=== PATIENT | female | born 2005 | race Hispanic/Latino ===

== ENCOUNTER 2024-01-06 11:33 | Emergency (ER) | payer BC, SELFPAY ==
[2024-01-06 11:34] VITALS: BP 142/83
[2024-01-06] MEDS: TORADOL 15 MG IV (13:19)
--- NOTE | 2024-01-06 13:22 | ED.GENMED ---
History of Present Illness
<Delphine Diamond PA-C - Last Filed: 01/06/24 18:25>
General
Chief Complaint: Female Physician Office Rep/Gu symptoms
Source: patient
Exam Limitations: none
Time Seen by Provider: 01/06/24 12:19
Nursing documentation reviewed up to this point in time: agreed with
History of Present Illness
History of Present Illness:
18-year-old female presenting to the emergency department for evaluation of pelvic discomfort. Patient states that she woke up this morning and had pelvic cramping. Cramping was much more severe than she is ever had in the past which prompted her
to come to the emergency department for evaluation. Patient states yesterday she felt at her baseline without any pain. Patient denies any fever or chills. No nausea or vomiting. Patient denies any true urinary symptoms. Patient denies any
vaginal spotting or abnormal vaginal discharge. Patient is not currently sexually active. No history of STIs/STDs. No history of abnormal Pap smears. Patient does have a copper IUD. Patient is not currently sexually active.
Review of Systems
<Delphine Diamond PA-C - Last Filed: 01/06/24 18:25>
Review of Systems
Allergies reviewed?: Yes
All Other Systems: ROS reviewed and negative except as documented in HPI and ROS
Phy Exam
<Delphine Diamond PA-C - Last Filed: 01/06/24 18:25>
Physical Exam
Physical Exam:
Vitals: Mildly hypertensive, otherwise vital signs stable
General: Patient is well appearing, no acute distress. Nontoxic appearing
Skin: Warm and dry, no rashes or lesions
Head: Normocephalic, atraumatic
Eyes: Sclera nonicteric. EOMs intact. No nystagmus.
Throat: Protecting airway
Neck: Normal ROM, no cervical spine tenderness, no meningismus
Cardiac: Regular rate and rhythm, no murmurs.
Pulm: Normal respiratory effort, no wheezes, rales, rhonchi heard on exam.
Abdomen: Abdomen soft. Mild suprapubic tenderness and right pelvic tenderness without rebound tenderness or guarding. No pain at McBurney's point. No CVA tenderness
Extremities: No evidence of cyanosis or edema. Great distal pulses
Neuro: Grossly intact.
Psychiatric: Normal affect.
Course
<Delphine Diamond PA-C - Last Filed: 01/06/24 18:25>
Orders/Labs/Results
Orders:
Orders
01/06/24
US Pelvis W Transvag Combined Urgent
Reason For Exam: PELVIC PAIN
01/06/24 12:35
Ketorolac [Toradol] 15 mg IV NOW STA
01/06/24 12:36
Test Result ONCE
01/06/24 13:01
Complete Blood Count/With Diff Urgent
Comprehensive Metabolic Panel Urgent
HCG, Serum Qualitative Screen Urgent
Urinalysis Reflex To Culture Urgent
Date Specimen was Collected: 01/06/24
Time Specimen was Collected: 13:00
Urine Microscopic Reflex Cult Urgent
Urine Culture Urgent
CLAUDIA Source: U
Specimen Description:
Date Specimen was Collected: 01/06/24
Time Specimen was Collected: 13:00
01/06/24 13:35
0.9% Sodium Chloride 1000 ml [Nss] 1,000 ml IV BOLUS
Kidney US [US Renal Only W/O Bladder] Urgent
Comment:
Reason For Exam: lower pelvic pain
Pelvis (Non Obstetric) US [US Pelvis Only (non-obstetric)] Urgent
Comment:
Reason For Exam: pelvic pain, r/o torsion
Abnormal Lab Results
01/06/24
13:01
RBC 3.97 L 10^6/uL
(4.20-5.40)
Hgb 11.7 L g/dL
(12.0-16.0)
Hct 35.9 L %
(37.0-47.0)
MCHC 32.6 L g/dL
(33.0-37.0)
Carbon Dioxide 21 L mmol/L
(22-30)
Leukocyte Esterase Rfl Trace A
(Negative)
Urine RBC 3-6 A /HPF
(0-2)
Urine Bacteria (Reflex) Moderate A
(Negative)
01/06/24 13:01
01/06/24 13:01
Vital Signs
Initial and Last Documented VS:
Initial Vital Signs
Temp Pulse Resp BP Pulse Ox
98.2 F 78 16 142/83 93
01/06/24 11:34 01/06/24 11:34 01/06/24 11:34 01/06/24 11:34 01/06/24 11:34
Last Documented Vital Signs
Temp Pulse Resp BP Pulse Ox
98.2 F 59 18 125/81 96
01/06/24 11:34 01/06/24 17:39 01/06/24 17:39 01/06/24 17:39 01/06/24 16:56
Siminlt;Mague Serrano, DO - Last Filed: 01/06/24 17:17>
Orders/Labs/Results
Orders:
Orders
01/06/24
US Pelvis W Transvag Combined Urgent
Reason For Exam: PELVIC PAIN
01/06/24 12:35
Ketorolac [Toradol] 15 mg IV NOW STA
01/06/24 12:36
Test Result ONCE
01/06/24 13:01
Complete Blood Count/With Diff Urgent
Comprehensive Metabolic Panel Urgent
HCG, Serum Qualitative Screen Urgent
Urinalysis Reflex To Culture Urgent
Date Specimen was Collected: 01/06/24
Time Specimen was Collected: 13:00
Urine Microscopic Reflex Cult Urgent
Urine Culture Urgent
CLAUDIA Source: U
Specimen Description:
Date Specimen was Collected: 01/06/24
Time Specimen was Collected: 13:00
01/06/24 13:35
0.9% Sodium Chloride 1000 ml [Nss] 1,000 ml IV BOLUS
Kidney US [US Renal Only W/O Bladder] Urgent
Comment:
Reason For Exam: lower pelvic pain
Pelvis (Non Obstetric) US [US Pelvis Only (non-obstetric)] Urgent
Comment:
Reason For Exam: pelvic pain, r/o torsion
Abnormal Lab Results
01/06/24
13:01
RBC 3.97 L 10^6/uL
(4.20-5.40)
Hgb 11.7 L g/dL
(12.0-16.0)
Hct 35.9 L %
(37.0-47.0)
MCHC 32.6 L g/dL
(33.0-37.0)
Carbon Dioxide 21 L mmol/L
(22-30)
Leukocyte Esterase Rfl Trace A
(Negative)
Urine RBC 3-6 A /HPF
(0-2)
Urine Bacteria (Reflex) Moderate A
(Negative)
01/06/24 13:01
01/06/24 13:01
Vital Signs
Initial and Last Documented VS:
Initial Vital Signs
Temp Pulse Resp BP Pulse Ox
98.2 F 78 16 142/83 93
01/06/24 11:34 01/06/24 11:34 01/06/24 11:34 01/06/24 11:34 01/06/24 11:34
Last Documented Vital Signs
Temp Pulse Resp BP Pulse Ox
98.2 F 59 18 125/81 96
01/06/24 11:34 01/06/24 17:39 01/06/24 17:39 01/06/24 17:39 01/06/24 16:56
<Delphine Diamond PA-C - Last Filed: 01/06/24 18:25>
MDM/Problems Addressed
Differential Diagnosis Includes:
Not limited to: Mittelschmerz, ovarian cyst, ovarian torsion, UTI, ectopic , IUD migration
MDM/Problems Addressed:
18-year-old female presenting with right pelvic cramping since this morning. No associated fever, chills, abdominal pain, nausea/vomiting. No urinary symptoms. Not currently sexually active. No history of STI/STDs. No abnormal vaginal
discharge. Vital stable. Exam as above. Patient is very well-appearing, no distress. She is calm and nontoxic-appearing. Abdomen is soft with very mild suprapubic and right pelvic tenderness without rebound tenderness or guarding. No palpable
masses. No CVA tenderness. Heart regular rate rhythm. Lungs clear bilaterally. Patient is perfusing well. Patient without any concerns for STI/STDs. Will check labs, , urine. Will get pelvic ultrasound. Will give fluids, IV Toradol.
Will closely monitor and reassess.
Chronic conditions affecting care:
N/A
Acute Exacerbation and/or Progression of Chronic Illness:
N/A
<Delphine Diamond PA-C - Last Filed: 01/06/24 18:25>
*Radiology
Radiology exam reviewed: radiology read reviewed
*Pulse Oximetry
Patient hypoxic: no
*EKG
Interpreted by ED Provider?: NA
*At Risk Specialist Interpretation
Rate: At Risk Specialist- N/A
*Critical Care Note
Total Time (30-74mins, 75-104mins- exclusive of procedures): Not Applicable
<Delphine Diamond PA-C - Last Filed: 01/06/24 18:25>
Update Note
Update Note:
Update:. Labs reviewed. No clinically significant abnormalities. test negative. Urine does show bacteria although given many squamous cells seen�suspect likely contamination. Given no current urinary symptoms and high suspicion for
contamination�will avoid antibiotics at this time. Urine culture will be sent. Few RBCs also noted. Will add on renal ultrasound to pelvic ultrasound to ensure no obstructive process versus hydronephrosis.
Update: Into reassess patient. Patient has essentially complete improvement in pain following dose of Toradol. Ultrasound pending.
Update: Ultrasound reports reviewed. Renal ultrasound without any abnormalities. Pelvic ultrasound does show a complex cystic lesion near right ovary likely representing a hemorrhagic cyst. This measures approximately 3 x 3 x 2. Normal arterial
and venous blood flow documented to both ovaries. Suspect this is likely contributing to patient's symptoms. Patient has remained hemodynamically stable, with no pain after Toradol. Given that patient remains in no pain and small size of cystic
lesion�no indication for admission/further management at this time. Patient stable for discharge with close [facility] follow-up. Recommend repeat pelvic ultrasound in 6 to 8 weeks. Return precautions discussed at length. Patient seen with attending
physician.
ED Attending Note
<Delphine Diamond PA-C - Last Filed: 01/06/24 18:25>
-
Portions of this chart may have been created with voice recognition software.� Occasional wrong word or��sound alike� substitutions may have occurred due to the inherent limitations of voice recognition software.
<Mague Serrano DO - Last Filed: 01/06/24 17:17>
ED Attending Note
Patient seen and examined by attending physician: Yes
I performed a history and physical exam of patient and discussed management with resident, I reviewed resident's note and agree with documented findings and plan of care.: Yes
ED Attending Note:
I have reviewed and agree with Delphine Diamond PA-C's history and treatment plan. 18yoF presenting with lower abdominal cramping, states it was initially worse on the right side. Never happened before. Pt states LMP 3 weeks ago. Pt denies any
vaginal bleeding, vaginal discharge or urinary symptoms. Pt states pain resolved with toradol. Heart RRR, lungs clear, abdomen soft nondistended nontender. Labs unremarkable. UA contaminated, low suspicion for UTI. Pelvic US shows right ovarian
cystic lesion, normal blood flow bilaterally. Renal US unremarkable. Discussed results with patient at bedside. Stable for discharge home with OBGYN follow up
Discharge Plan
Departure
Patient Disposition: Home (Routine Discharge)
Date of Disposition: 01/06/24
Time of Disposition: 17:16
Patient with high blood pressure during this ER visit?: No
Condition: Good
Covid-19: Not Applicable
Discharge Problem:
Complex cyst of right ovary
Instructions: Ovarian Cyst ED
Referrals:
NONE,* [Family Provider] -
Activity Restrictions/Additional Instructions:
Return to the emergency department with any fevers, chills, severe vaginal bleeding, severe abdominal pain, intractable nausea/vomiting, worsening in current symptoms, or any other concerns
-As discussed�your ultrasound did show a cyst near your right ovary today. This should be followed up by your [facility] in the next 6 to 8 weeks for further evaluation. Please return with any acute worsening in symptoms.
-It is important to stay well-hydrated. You can take Motrin/ibuprofen as needed for pain.
Monitor your symptoms closely and return to the emergency department with any acute worsening/new symptoms
Interventions
Interventions:
*Risk Screen - Suicide Last Done: 01/06/24 13:11
*General Assessment Last Done: 01/06/24 13:11
*Neglect/Abuse Screening Last Done: 01/06/24 13:11
*Nursing Disposition Last Done: 01/06/24 17:39
ED-Female Genitourinary Assessment Last Done: 01/06/24 13:10
Discharge Date and Time
Discharge Date/Time: 01/06/24 17:40
Print Language: CZECH
[2024-01-06 13:26] LABS: Urine Albumin Trace (Neg - Trace); Urine Bilirubin Negative (Negative); Urine Character Clear (Clear); Urine Color Yellow; Urine Glucose Negative (Negative); Urine Ketone Negative (Negative); Urine Leukocyte Trace (Negative); Urine Nitrite Negative (Negative); Urine Occult Blood Negative (Negative); Urine Urobilinogen Negative (Neg - 1+)
[2024-01-06 13:29] LABS: HCG, Serum Qualitative Screen Negative
[2024-01-06 13:31] LABS: ALT (SGPT) < 10 U/L (0-35); AST (SGOT) 17 U/L (14-36); Albumin 4.4 g/dl (3.5-5.0); Alkaline Phosphatase 59 U/L (38-126); Blood Urea Nitrogen 9 mg/dl (7-17); Calcium 9.9 mg/dl (8.4-10.2); Carbon Dioxide 21 mmol/L (22-30); Chloride 106 mmol/L (98-107); Glucose 95 mg/dl (70-99); Potassium 4.2 mmol/L (3.5-5.1); Sodium 139 mmol/L (135-145); Total Bilirubin 0.4 mg/dl (0.2-1.3); Total Protein 6.9 g/dl (6.3-8.2); eGFR > 60.00
[2024-01-06 13:33] LABS: Urine Squamous Cell >30 /LPF (Few)
[2024-01-06 13:34] LABS: Urine Bacteria Moderate (Negative)
[2024-01-06] MEDS: NSS 1000 IV (13:38)
[2024-01-06 14:19] LABS: % Basophils 0.4 % (0-2); % Eosinophils 1.2 % (0-6); % Immature Granulocytes 0.1 % (0-0.5); % Lymphocytes 26.6 % (20.5-51.1); % Monocytes 5.7 % (1.7-9.3); Absolute Eosinophils 0.1 10^3/uL (0-0.7); Absolute Lymphocytes 1.8 10^3/uL (1.2-3.4); Absolute Monocytes 0.4 10^3/uL (0.1-0.6); Absolute Neutrophils 4.4 10^3/uL (1.4-6.5); Hematocrit 35.9 % (37.0-47.0); Hemoglobin 11.7 g/dL (12.0-16.0); Mean Corp Hgb Conc. 32.6 g/dL (33.0-37.0); Mean Corpuscular Hgb 29.5 pg (27.0-31.0); Mean Corpuscular Volume 90.4 fL (81.0-99.0); Mean Platelet Volume 10.3 fL (7.4-10.4); Nucleated Red Blood Cells % 0 %; Platelet Count 358 10^3/uL (130-400); Red Blood Cell Count 3.97 10^6/uL (4.20-5.40); White Blood Cell Count 6.7 10^3/uL (4.8-10.8)
[2024-01-06 16:56] VITALS: BP 119/72
[2024-01-06 17:39] VITALS: BP 125/81
== END 2024-01-06 17:40 | disposition home or self-care (01) ==
LOC: EMR 11:33
PROVIDERS: Physician Assistant; EMERGENCY PHYSICIAN Emergency Medicine
DX: N83.291 Other ovarian cyst, right side (principal); R10.2 Pelvic and perineal pain; Z97.5 Presence of (intrauterine) contraceptive device; Z88.0 Allergy status to penicillin
CPT/HCPCS: 99284; 96374; 96361; 76775; 76830; 76856; 80053; 81003; 81015; 84703; 85025; 87086

== ENCOUNTER → 2024-02-10 12:14 | Emergency (ER) | payer BC, SELFPAY ==
[2024-02-10 12:18] VITALS: BP 113/64
--- NOTE | 2024-02-10 12:31 | ED.GENMED ---
History of Present Illness
General
Chief Complaint: Foreign Body Removal
Source: patient
Time Seen by Provider: 02/10/24 12:22
History of Present Illness
History of Present Illness:
18-year-old female presents with earring stuck in the right ear. She notes yesterday of the back of her earring was overgrown by the skin. She denies any pain or significant drainage. No other complaints. The piercing itself is about 3 months old
Phy Exam
Physical Exam
Physical Exam:
General: Well-appearing female no acute respiratory distress
HEENT: Normocephalic there is an embedded earring noted over the superior aspect of the right ear. The posterior aspect of the earring is underneath the skin there is mild surrounding erythema there is no drainage
Course
Vital Signs
Initial and Last Documented VS:
Initial Vital Signs
Temp Pulse Resp BP Pulse Ox
97.5 F 66 16 113/64 100
02/10/24 12:18 02/10/24 12:18 02/10/24 12:18 02/10/24 12:18 02/10/24 12:18
Last Documented Vital Signs
Temp Pulse Resp BP Pulse Ox
97.5 F 66 16 113/64 100
02/10/24 12:18 02/10/24 12:18 02/10/24 12:18 02/10/24 12:18 02/10/24 12:18
MDM/Problems Addressed
Differential Diagnosis Includes:
Embedded earring right ear. The ear was cleansed with saline and alcohol and anesthetized with 1% lidocaine. The back of the earring was able to be pushed through the back of his skin and using forceps the earring was pulled off of itself. The
earring was then removed from the ear without difficulty. Stable for discharge
*Critical Care Note
Total Time (30-74mins, 75-104mins- exclusive of procedures): Not Applicable
ED Attending Note
-
Portions of this chart may have been created with voice recognition software.� Occasional wrong word or��sound alike� substitutions may have occurred due to the inherent limitations of voice recognition software.
Discharge Plan
Departure
Patient Disposition: Home (Routine Discharge)
Date of Disposition: 02/10/24
Time of Disposition: 12:33
Patient with high blood pressure during this ER visit?: No
Discharge Problem:
Embedded earring of right ear
Activity Restrictions/Additional Instructions:
Keep clean, return if needed.
Interventions
Interventions:
*Risk Screen - Suicide Last Done: 02/10/24 12:18
*General Assessment Last Done: 02/10/24 12:18
ED- Fall Risk Assessment Last Done: 02/10/24 12:20
*ED COVID-19 Vaccine History Last Done: 02/10/24 12:18
Discharge Date and Time
Print Language: MALAWIAN
== END | disposition home or self-care (01) ==
LOC: EMR 12:14
PROVIDERS: EMERGENCY PHYSICIAN Emergency Medicine
DX: S00.451A Superficial foreign body of right ear, initial encounter (principal); W45.8XXA Other foreign body or object entering through skin, initial encounter
CPT/HCPCS: 99282